=== PATIENT | female | born 1995 | race Caucasian/White ===

== ENCOUNTER 2020-02-18 13:40 | Emergency (ER) | payer BC, SELFPAY ==
--- NOTE | 2020-02-18 15:38 | ER ---
Nurse's Notes [facility] Name: Lula Parker Age: 25 yrs Sex: Female : 1995 Arrival Date: 02/18/2020 Time: 13:41 Bed External Waiting Private MD: Diagnosis: Presentation: 02/17 13:50 Chief complaint: Patient states: Suprapubic pain started this morning, denies N/V/D, jl7 denies urinary symptoms, reports "Every time I got up I would feel like I'm going to pass out.". Coronavirus screen: Proceed with normal triage. Patient denies a cough. Patient denies shortness of breath or difficulty breathing. Patient denies measured and/or subjective temperature greater than 100.4F prior to today's visit. Patient denies travel on a cruise ship or to a country the [facility] currently lists as an affected area. Patient denies contact with known and/or suspected case of COVID-19. Ebola Screen: No symptoms or risks identified at this time. Initial Sepsis Screen: Does the patient meet any 2 criteria? No. Patient's initial sepsis screen is negative. Does the patient have a suspected source of infection? No. Patient's initial sepsis screen is negative. Risk Assessment: Do you want to hurt yourself or someone else? Patient reports no desire to harm self or others. Onset of symptoms was February 18, 2020. Care prior to arrival: None. 13:50 Method Of Arrival: Ambulatory jl7 13:50 Acuity: SANGEETA 3 jl7 Triage Assessment: 13:58 General: Appears in no apparent distress. uncomfortable, Behavior is calm, cooperative, jl7 appropriate for age. Pain: Complains of pain in suprapubic area Pain currently is 5 out of 10 on a pain scale. Neuro: Level of Consciousness is awake, alert, obeys commands, Oriented to person, place, time, situation. Cardiovascular: Patient's skin is warm and dry. Respiratory: Airway is patent Respiratory effort is even, unlabored, Respiratory pattern is regular, symmetrical. GI: Abdomen is flat, non-distended, Stools are reported to be constipated. Last BM was February 17, 2020. Reports lower abdominal pain, Patient currently denies diarrhea, nausea, vomiting. : Denies burning with urination. Derm: Skin is pink, warm \\T\\ dry. 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 - Social history:: Smoking status: Patient denies any tobacco usage or history of. Patient uses alcohol, occasionally. street drugs, marijuana. Assessment: 15:16 Reassessment: pt not in lobby. Vital Signs: 13:50 BP 117 / 77; Pulse 66; Resp 17 S; Temp 97.7(TE); Pulse Ox 100% on R/A; Weight 63.5 kg jl7 (R); Height 5 ft. 8 in. (172.72 cm) (R); Pain 5/10; 13:50 Body Mass Index 21.29 (63.50 kg, 172.72 cm) 7 ED Course: 13:41 Patient arrived in ED. ag5 13:54 Triage completed. jl7 13:58 Arm band placed on right wrist. 7 15:16 Vanessa Zuniga, RN is Primary Nurse. Administered Medications: No medications were administered Outcome: 15:36 Eloped from waiting room, before seeing physician Time discovered patient gone: February 17 iw 2019 at 15:36 15:36 Condition: good 15:37 Patient left the ED. Signatures: Vanessa Zuniga, RN RN Gabino Marquez RN RN jl Addis Clark ag5
[2020-02-19 14:39] VITALS: BP 117/77; TEMP 97.7; O2SAT 100
== END 2020-02-18 15:37 | disposition left against medical advice (07) ==
LOC: ER 13:40
DX: Z53.21 Procedure and treatment not carried out due to patient leaving prior to being seen by health care provider (principal); Z98.82 Breast implant status
CPT/HCPCS: 99281